=== PATIENT | male | born 1955 | race Caucasian/White ===

== ENCOUNTER 2016-05-27 21:36 | Emergency (ER) | payer OTHER ==
--- NOTE | ~2016-05-27 | ER ---
PATIENT'S NAME: [facility] AGE: 60 Y [address] ROOM: [place] [address] LOCATION: [facility] ADMIT DATE: 05/27/2016 ER/Outpatient Report DISCHARGE DATE: 05/27/2016 FAMILY PHYSICIAN: Physician, Unknown ATTENDING PHYSICIAN: Lj Babb Admission date and time documented in the medical record. I saw the patient at 2145 hours. CHIEF COMPLAINT: Syncopal episode, headache. HISTORY OF PRESENT ILLNESS: The patient is a 60-year-old male who apparently was playing games with his family. He was laughing and all of a sudden felt like he could not get his breath, and had a syncopal episode. This happened about an hour ago. The patient was sitting, fell to the right side, woke up within few seconds. Family thought he may have had a little bit of shaking. Suddenly responded and woke up. He was then brought to the emergency room for evaluation by family. The patient is awake and alert. He is oriented. He has a generalized headache. No visual or auditory disturbance, lateralizing weakness, numbness, tingling, or loss of function. No chest pain, shortness of breath. No abdominal pain, nausea, vomiting, or diarrhea. No urinary symptoms. No joint or muscle swelling, redness, or pain. No skin eruptions or rash. No history of TIA, CVA, or seizure disorder. No history of endocrine problems or psych issues. HOME MEDICATIONS: See attached medication list. ALLERGIES: NONE. SOCIAL HISTORY: Nonsmoker and nondrinker. SIGNIFICANT PAST MEDICAL HISTORY: Hypertension and bradycardiac episodes. OPERATIONS: None. REVIEW OF SYSTEMS: All systems reviewed by me are negative with the exception of those discussed in the history of present illness. PATIENT'S NAME: [facility] AGE: 60 Y [address] ROOM: [place] [address] LOCATION: [facility] ADMIT DATE: 05/27/2016 ER/Outpatient Report DISCHARGE DATE: 05/27/2016 FAMILY PHYSICIAN: Physician, Unknown ATTENDING PHYSICIAN: Lj Babb PHYSICAL EXAMINATION: VITAL SIGNS: Temperature 98.4, pulse 90, respirations 18, and blood pressure 186/87, and O2 saturation on room air is 96%. [place] Coma Scale was 15. HEENT: Head: Normocephalic. Eyes: Extraocular muscles intact. PERRL. Sclerae and conjunctivae clear and nonicteric. Ears, Nose, and Throat: Clear. Mucous membranes moist. Teeth and jaw intact. NECK: No nuchal rigidity. No thyromegaly or cervical adenopathy. No tenderness. SPINE: Negative. LUNGS: Clear. Good air flow. No rales, rhonchi, or wheezes, anterior or posteriorly. HEART: Regular. Pulses are palpable. No chest wall or ribcage pain to palpation. ABDOMEN: Mildly obese, soft, nondistended, and nontender. Good bowel tones. No organomegaly or abnormal mass palpable. EXTREMITIES: No peripheral edema, cyanosis, or deformity. NEUROVASCULAR: Intact. SKIN: Clear. No skin eruptions or rash. DIAGNOSTIC DATA: Chest x-ray showed no acute infiltrate or changes. We will review x-ray with the radiologist. EKG showed sinus rhythm. No acute ST elevation, ischemic change, or arrhythmia. IMAGING: CT scan of the head showed no intracranial bleed, midline shift, mass effect, or skull fracture. CT scan was read by Radiology, see dictated transcribed report. LABORATORY DATA: Procalcitonin was less than 0.05. Lactate was 1.5. Venous pH was 7.43, white count was 8600, 44 segs, 39 lymphs, 10 monos, 6 eos, 1 baso. Hemoglobin is 15.3, hematocrit 42.9, and platelet count 137126. PTT is 26, pro time is 10.1, and INR 1.0. CMS was normal except for an elevated glucose 128, low calcium of 8.3, elevated BUN of 26. Magnesium was 2.2. CPK was 124. Point of care cardiac enzymes were normal. Thyroid is normal. ProBNP was 44. D-dimer was 0.58. EMERGENCY DEPARTMENT COURSE: We did give the patient IV normal saline fluids here in the emergency department. IMPRESSION: 1. Syncopal episode, etiology uncertain, suspect just vasovagal. The PATIENT'S NAME: EUGENE [facility] AGE: 60 Y [address] ROOM: [place] [address] LOCATION: ED ADMIT DATE: 05/27/2016 ER/Outpatient Report DISCHARGE DATE: 05/27/2016 FAMILY PHYSICIAN: Physician, Unknown ATTENDING PHYSICIAN: Lj Babb patient had a normal CT scan of the head, normal cardiac workup, as well as normal chest x-ray. Laboratory studies were normal. 2. History of hypertension. PLAN: The patient was dismissed home. Observation. Activity as tolerated. Continue present home medications and care. Good hydration, fluids, balanced diet. Moderate exercise program. Good rest. Follow up with personal physician as needed. Discussion ensued with the patient concerning my findings and recommendations, he understands. MD JAMES MIRANDA/modl /[id number] d: 05/28/16 0121 t: 05/28/161, OUTPATIENT REPORT
[2016-05-27 22:23] LABS: LACTATE 1.5 mEq/L (0.50-1.60)
[2016-05-27 22:24] LABS: BASOPHIL # 0.1 K/uL (0.0-0.2); BASOPHIL % 0.8 %; EOSINOPHIL # 0.5 K/uL (0.0-0.5); EOSINOPHIL % 5.9 %; HEMATOCRIT 42.9 % (37.0-53.0); HEMOGLOBIN 15.3 g/dL (12.0-17.0); IMMATURE GRANULOCYTE % 0.2 %; LYMPHOCYTE # 3.4 K/uL (0.8-4.0); LYMPHOCYTE % 39.2 %; MCHC 35.7 gm/dL (32.0-36.5); MCV 92.5 fl (83.0-98.0); MONOCYTE # 0.8 K/uL (0.0-1.0); MONOCYTE % 9.7 %; MPV 10.1 fl (9.4-12.4); NEUTROPHIL # (ANC) 3.8 K/uL (1.4-9.0); NEUTROPHIL % 44.2 %; NRBC % 0 /100WBC (0-0.00); PLATELET COUNT 241 K/uL (150-450); RBC 4.64 M/uL (4.00-6.00); RDW-CV 12.5 % (11.9-14.6); WBC 8.6 K/uL (4.0-11.0)
[2016-05-27 22:34] LABS: PROTIME 10.1 SECONDS (9.6-11.1); PTT 26 SECONDS (25-32)
[2016-05-27 22:49] LABS: ALBUMIN 3.3 gm/dL (3.5-5.0); ALK PHOS 55 IU/L (33-138); ALT 43 IU/L (12-78); ANION GAP 14.7 (10.0-19.0); AST 35 IU/L (10-40); BLOOD UREA NITROGEN 26 mg/dL (6-24); CALCIUM 8.3 mg/dL (8.5-10.5); CHLORIDE 105 mMol/L (96-110); CO2 25 mMol/L (22-32); CPK 124 IU/L (35-332); CREATININE 1.1 mg/dL (0.6-1.3); ESTIMATED GFR (MDRD EQUATION) > 60; MAGNESIUM 2.2 mg/dL (1.3-2.6); POTASSIUM 3.7 mMol/L (3.7-5.1); SODIUM 141 mMol/L (135-145); TOTAL BILIRUBIN 0.4 mg/dL (0.0-1.5); TOTAL PROTEIN 7.1 g/dL (6.0-8.4)
== END 2016-05-27 23:23 | disposition disaster alternative care site (69) ==
LOC: GMED 21:36
PROVIDERS: Emergency Medicine
DX: R55 Syncope and collapse (principal); I10 Essential (primary) hypertension
CPT/HCPCS: J7030